=== PATIENT | male | born 1935 | race Caucasian/White ===

== ENCOUNTER → 2017-09-07 | Outpatient (CLI) | payer MEDICARE, OTHER ==
[~2017-09-07] MED LIST: DOCU100 PO; FERR325 PO; HYDACE10B PO; Senna-Extra17.2 MG PO; WARF4 PO
== END | disposition home or self-care (01) ==
LOC: LAB SHORT 11:33 → PLD 11:33
DX: L57.0 Actinic keratosis (principal)
CPT/HCPCS: 88305

== ENCOUNTER → 2021-09-06 | Outpatient (CLI) | payer MEDICARE, OTHER | END | disposition home or self-care (01) | LOC: LAB 07:30 → LAB SHORT 07:30 → LAB FUT 08-23 08:20 | PROVIDERS: Internal Medicine | DX: E87.8 Other disorders of electrolyte and fluid balance, not elsewhere classified (principal) | CPT/HCPCS: 81050 ==